=== PATIENT | male | born 1965 | race Caucasian/White ===

== ENCOUNTER 2022-07-02 16:16 | Emergency (ER) | payer SELFPAY ==
[2022-07-02 16:23] VITALS: BP 147/89; PULSE 93; RESP 16; TEMP 36.8; O2SAT 99; BMI 27.1
--- NOTE | 2022-07-02 17:48 | ED_ITS ---
HPI - Extremity Problem General: Chief complaint: Extremity Injury, Lower Stated complaint: Possible pulled groin muscle Time Seen by Provider: 07/02/22 17:48 History of Present Illness: 57-year-old male patient comes in today with complaints of left inguinal pain. Patient reports for the last 3 to 4 weeks he has had pain and discomfort to his left hip. Patient does not recall any fall or straining that caused the problem. Patient denies any problems with urination or bowel movements. Patient reports no fever. Patient appears nontoxic. Patient appears in mild pain. Associated symptoms: Deny chest pain or fever(s) Review of Systems Const: Denies: fever(s) Card: Denies: chest pain Resp: Denies: dyspnea Musc: Reports: joint pain (Left inguinal/hip) Physical Exam Const: COMMON NORMALS: alert HENMT: COMMON NORMALS: normocephalic HEAD & SCALP: normocephalic Neck/C-Spine: COMMON NORMALS: full ROM Resp: COMMON NORMALS: normal respiratory effort and clear to auscultation bilaterally AUSCULTATION: clear to auscultation bilaterally Cardio: COMMON NORMALS: regular rate and regular rhythm RATE: regular rate RHYTHM: regular rhythm GI: COMMON NORMALS: non-tender : COMMON NORMALS: Yes no CVA tenderness BLADDER/KIDNEY EXAM: Yes no CVA tenderness Back/Pelvis: COMMON NORMALS: no CVA tenderness Extremity: LEFT LOWER EXTREMITY: Yes hip joint (Anterior inguinal tenderness, no mass) Neuro: SENSORIUM/ORIENTATION: Yes alert Skin: COMMON NORMALS: turgor normal GENERAL SKIN EXAM: turgor normal Course Vital Signs: Vital signs: Vital Signs Temperature 98.3 F 07/02/22 16:23 Pulse Rate 93 07/02/22 16:23 Respiratory Rate 16 07/02/22 16:23 Blood Pressure 147/89 07/02/22 16:23 Pulse Oximetry 99 07/02/22 16:23 Oxygen Delivery Me thod 07/02/22 16:23 MDM - Extremity (Nontraumatic) Medical Decision Making 57-year-old male patient comes in today for complaints of left inguinal pain. On exam patient is ambulatory using a cane to assist with walking. On exam patient has tenderness in the left inguinal area. No palpable mass or reducible hernia is noted. No redness is noted. Differential diagnosis includes not limited to avascular necrosis, groin strain, inguinal hernia, tendinitis versus bursitis. X-ray notes some degenerative joint disease of the hip. Reviewed exam with patient with recommendations for treatment and follow-up. Patient reported understanding and agreed to plan. Lab Data Radiology Impressions Hip/Pelvis X-Ray 07/02/22 17:53 IMPRESSION: Moderate to severe left hip osteoarthritis. Discharge Plan Discharge Patient Disposition: Home Clinical Impression: OA (osteoarthritis) of hip Qualifiers: Osteoarthritis type: unspecified Laterality: left Qualified Code(s): M16.12 - Unilateral primary osteoarthritis, left hip Condition: Stable Prescriptions: New naproxen 500 mg tablet 500 mg PO BID Qty: 60 0RF Discharge Orders: Discharge ED (Routine); Ordered 07/02/22 Ordered By: Darius Chow Referrals: Laura Segura FNP [Primary Care Provider] - Discharge Diet: Usual diet Discharge Activity: Increase activity as tolerated Patient Instructions: Osteoarthritis (ED) Activity Restrictions/Additional Instructions: Try to maintain normal activity. Use acetaminophen and anti-inflammatories like naproxen and ibuprofen to control pain. Drink plenty of water with medication. Follow-up with primary care for further instruction and evaluation. Return to ER for new concerns. Coding Level of Care Code ED Technical Illustrator for Liag Fwd Exam Comprehensive
--- NOTE | 2022-07-02 17:53 | XRR_ITS ---
PROCEDURE INFORMATION: Exam: XR Left Hip Exam date and time: 07/02/2022 5:55 PM Age: 57 years old Clinical indication: Hip pain; Left hip; Additional info: Pain x 4 weeks, no prior imaging TECHNIQUE: Imaging protocol: Radiologic exam of the Left hip. Views: 2 or 3 views hip with pelvis when performed. COMPARISON: No relevant prior studies available. FINDINGS: Bones/joints: Moderate to severe left hip osteoarthritis. Soft tissues: Unremarkable. XR/XR hip LT 2-3V wo/w pel* [id number] IMPRESSION: Moderate to severe left hip osteoarthritis.
[2022-07-02] MEDS: dexamethasone 10 mg/mL INJ IM (18:25)
[2022-07-02] MEDS: ketorolac 30 mg/mL INJ IM (18:25)
== END 2022-07-02 18:26 | disposition home or self-care (01) ==
PROVIDERS: Emergency Provider Nurse Practitioner Family; PCP Nurse Practitioner Family
DX: M16.12 Unilateral primary osteoarthritis, left hip (principal)
CPT/HCPCS: 73502; 96372; 99284; J1100; J1885